=== PATIENT | female | born 1980 | race Caucasian/White ===

== ENCOUNTER 2019-08-19 19:18 | Emergency (ER) | payer OTHER ==
[~2019-08-19] VITALS: Ht 165.1 cm; Wt 86.0 kg
[2019-08-19 21:05] VITALS: BP 123/85
== END 2019-08-19 21:08 | disposition home or self-care (01) ==
LOC: ER 19:19
DX: S60.011A Contusion of right thumb without damage to nail, initial encounter (principal); W22.8XXA Striking against or struck by other objects, initial encounter; Y93.89 Activity, other specified; Y92.89 Other specified places as the place of occurrence of the external cause; Y99.9 Unspecified external cause status
CPT/HCPCS: 73130; 99283

== ENCOUNTER 2024-08-07 20:12 | Emergency (ER) | payer BC ==
[~2024-08-07] VITALS: Ht 167.6 cm; Wt 109.1 kg
[2024-08-07 20:24] VITALS: TEMP 98.2
[2024-08-07 20:32] LABS: BASOPHILS % (AUTO) 0.3 % (0-1); EOSINOPHILS # (AUTO) 0.1 X10'3 (0-0.9); EOSINOPHILS % (AUTO) 1.2 % (0-6); HEMATOCRIT 33.5 % (35.0-45.0); HEMOGLOBIN 10.6 g/dl (12.0-16.0); LYMPHOCYTES # (AUTO) 2.4 X10'3 (1.1-4.8); LYMPHOCYTES % (AUTO) 24.4 % (21-51); MEAN CORPUSCULAR HEMOGLOBIN 22.3 PG (27.0-31.0); MEAN CORPUSCULAR HGB CONC 31.6 g/dL (33.0-36.5); MEAN CORPUSCULAR VOLUME 70.6 FL (78-98); MEAN PLATELET VOLUME 6.8 FL (7.4-10.4); MONOCYTES # (AUTO) 0.6 X10'3 (0-0.9); MONOCYTES % (AUTO) 6.4 % (2-12); NEUTROPHILS # (AUTO) 6.7 X10'3 (1.8-7.7); NEUTROPHILS % (AUTO) 67.7 % (42-75); PLATELET COUNT 347 X10'3 (140-440); RED BLOOD COUNT 4.74 X10'6 (4.20-5.60); RED CELL DISTRIBUTION WIDTH 16.7 % (11.5-14.5); WHITE BLOOD COUNT 9.9 X10'3 (4.5-11.0)
[2024-08-07 20:48] LABS: ALANINE AMINOTRANSFERASE 24 U/L (12-78); ALBUMIN 3.6 G/DL (3.4-5.0); ALBUMIN/GLOBULIN RATIO 0.9 (1.1-1.5); ALKALINE PHOSPHATASE 92 IU/L (46-116); ANION GAP 7 (8-16); ASPARTATE AMINO TRANSFERASE 19 U/L (10-37); BILIRUBIN,TOTAL 0.2 MG/DL (0.1-1.0); BLOOD UREA NITROGEN 19 MG/DL (7-18); BUN/CREATININE RATIO 25.7 (10.0-20.0); CALCIUM 8.9 MG/DL (8.5-10.1); CHLORIDE 103 MMOL/L (99-107); CREATININE 0.74 MG/DL (0.40-0.90); GLUCOSE 89 MG/DL (70-104); POTASSIUM 3.8 MMOL/L (3.5-5.1); SODIUM 139 MMOL/L (135-145); TOTAL CARBON DIOXIDE 28.7 MMOL/L (24-32); TOTAL PROTEIN 7.5 G/DL (6.4-8.2); eCRCL 93 ML/MIN; eGFR 86 ML/MIN
[2024-08-07 20:54] LABS: PRO BRAIN NATRIURETIC PEPTIDE 118 PG/ML (0-125)
[2024-08-07 20:56] VITALS: PULSE 74; RESP 18; O2SAT 98
[2024-08-07] MEDS: ipratropium/albuterol 3ml nebule NEB ONE (20:56)
[2024-08-07 21:01] VITALS: PULSE 81; RESP 22; O2SAT 96
[2024-08-07 22:02] LABS: BILIRUBIN,URINE NEGATIVE (Neg); CLARITY,URINE CLEAR (Clear); COLOR,URINE STRAW (Yellow); GLUCOSE, URINE NEGATIVE (Neg); KETONES,URINE NEGATIVE (Neg); LEUKOCYTE ESTERASE ,URINE NEGATIVE (Neg); NITRITES, URINE NEGATIVE (Neg); OCCULT BLOOD,URINE NEGATIVE (Neg); PROTEIN,URINE NEGATIVE (Neg); UROBILINOGEN,URINE 0.2 E.U/dL (0.2-1.0)
[2024-08-07 22:05] LABS: UA COLLECTION TYPE CLN CATCH MIDSTREAM
[2024-08-08 00:06] VITALS: BP 114/62; PULSE 89; RESP 17; O2SAT 99
== END 2024-08-08 01:31 | disposition home or self-care (01) ==
LOC: ER 20:12
DX: M79.604 Pain in right leg (principal); R07.89 Other chest pain; Z82.49 Family history of ischemic heart disease and other diseases of the circulatory system
CPT/HCPCS: 36415; 71045; 80053; 81003; 83880; 84484; 85025; 93005; 93971; 94640; 99285

== ENCOUNTER 2024-08-11 10:19 | Emergency (ER) | payer BC ==
[~2024-08-11] VITALS: Ht 167.6 cm; Wt 91.0 kg
[2024-08-11 11:10] LABS: STREP A SCREEN NEGATIVE (Neg)
[2024-08-11 13:32] VITALS: BP 137/87; PULSE 78; RESP 16; TEMP 98.1; O2SAT 97
== END 2024-08-11 13:45 | disposition home or self-care (01) ==
LOC: ER 10:20
DX: J02.9 Acute pharyngitis, unspecified (principal); R51.9 Headache, unspecified; Z20.822 Contact with and (suspected) exposure to COVID-19
CPT/HCPCS: 36415; 87081; 87811; 87880; 99283

== ENCOUNTER 2024-08-26 10:13 | Emergency (ER) | payer BC ==
[~2024-08-26] VITALS: Ht 167.6 cm; Wt 112.5 kg
[2024-08-26 10:21] VITALS: TEMP 97
[2024-08-26] MEDS: SUMAtriptan succ. 6 MG/0.5ml vial SQ ONE (11:56)
[2024-08-26] MEDS: ketorolac trometh 15mg/ml vial 15 MG/ML ML IM ONE (12:55)
[2024-08-26] MEDS: ondansetron 4mg rapidly disintigrating tab PO ONE (12:56)
[2024-08-26 13:11] VITALS: RESP 16
== END 2024-08-26 13:19 | disposition home or self-care (01) ==
LOC: ER 10:14
DX: G43.909 Migraine, unspecified, not intractable, without status migrainosus (principal); R11.0 Nausea
CPT/HCPCS: 96372; 99284; J1885; J3030; A4615

== ENCOUNTER 2024-10-07 09:54 | Outpatient (CLI) | payer BC, MEDICAID | END 2024-10-07 23:59 | disposition home or self-care (01) | LOC: RAD 09:54 | PROVIDERS: ATTEND Registered Nurse | DX: J45.909 Unspecified asthma, uncomplicated (principal); R91.1 Solitary pulmonary nodule; J84.10 Pulmonary fibrosis, unspecified | CPT/HCPCS: 71250 ==

== ENCOUNTER 2024-10-09 14:57 | Outpatient (CLI) | payer BC, MEDICAID ==
[~2024-10-09] VITALS: Ht 167.6 cm; Wt 108.9 kg
[2024-10-09] MEDS: albuterol 2.5 MG/3 ML nebule NEB ONE (15:20)
[2024-10-09 15:26] VITALS: PULSE 72; RESP 16; O2SAT 98
[2024-10-09 15:38] VITALS: PULSE 82; RESP 16
== END 2024-10-09 23:59 | disposition home or self-care (01) ==
LOC: RT 14:57
PROVIDERS: ATTEND Registered Nurse
DX: J45.909 Unspecified asthma, uncomplicated (principal); R91.1 Solitary pulmonary nodule
CPT/HCPCS: 94060; 94729; 94760

== ENCOUNTER 2024-10-30 09:10 | Emergency (ER) | payer BC, MEDICAID ==
[~2024-10-30] VITALS: Ht 167.6 cm; Wt 109.1 kg
[2024-10-30 09:17] VITALS: TEMP 98.2
[2024-10-30] MEDS: LIDOcaine 2% Viscous 15ml cup MM PRN (09:32)
[2024-10-30] MEDS: mag hydrox/Alum hydrox/simeth 30ml oral suspension PO ONE (09:32)
[2024-10-30] MEDS: famotidine 20mg tablet PO ONE (09:32)
[2024-10-30 09:35] LABS: BASOPHILS % (AUTO) 0.4 % (0-1); EOSINOPHILS # (AUTO) 0.1 X10'3 (0-0.9); EOSINOPHILS % (AUTO) 1.5 % (0-6); HEMATOCRIT 34.5 % (35.0-45.0); HEMOGLOBIN 11.2 g/dl (12.0-16.0); LYMPHOCYTES # (AUTO) 2.1 X10'3 (1.1-4.8); LYMPHOCYTES % (AUTO) 26.9 % (21-51); MEAN CORPUSCULAR HEMOGLOBIN 23.3 PG (27.0-31.0); MEAN CORPUSCULAR HGB CONC 32.5 g/dL (33.0-36.5); MEAN CORPUSCULAR VOLUME 71.5 FL (78-98); MEAN PLATELET VOLUME 6.8 FL (7.4-10.4); MONOCYTES # (AUTO) 0.6 X10'3 (0-0.9); MONOCYTES % (AUTO) 7.2 % (2-12); PLATELET COUNT 342 X10'3 (140-440); RED BLOOD COUNT 4.82 X10'6 (4.20-5.60); RED CELL DISTRIBUTION WIDTH 16.8 % (11.5-14.5); WHITE BLOOD COUNT 7.9 X10'3 (4.5-11.0)
[2024-10-30 09:56] LABS: BILIRUBIN,URINE NEGATIVE (Neg); CLARITY,URINE CLEAR (Clear); COLOR,URINE YELLOW (Yellow); GLUCOSE, URINE NEGATIVE (Neg); KETONES,URINE NEGATIVE (Neg); LEUKOCYTE ESTERASE ,URINE NEGATIVE (Neg); NITRITES, URINE NEGATIVE (Neg); OCCULT BLOOD,URINE NEGATIVE (Neg); PROTEIN,URINE NEGATIVE (Neg); UROBILINOGEN,URINE 0.2 E.U/dL (0.2-1.0)
[2024-10-30 10:01] LABS: UA COLLECTION TYPE NON-SPECIFIED
[2024-10-30 10:04] LABS: ANION GAP 6 (8-16); BLOOD UREA NITROGEN 19 MG/DL (7-18); BUN/CREATININE RATIO 27.5 (10.0-20.0); CHLORIDE 104 MMOL/L (99-107); CREATININE 0.69 MG/DL (0.40-0.90); GLUCOSE 97 MG/DL (70-104); POTASSIUM 3.7 MMOL/L (3.5-5.1); SODIUM 138 MMOL/L (135-145); TOTAL CARBON DIOXIDE 27.8 MMOL/L (24-32)
[2024-10-30 10:05] LABS: ALBUMIN 3.6 G/DL (3.4-5.0); CALCIUM 9.1 MG/DL (8.5-10.1); LIPASE 27 U/L (16-77); MAGNESIUM 2.3 MG/DL (1.5-2.4); PRO BRAIN NATRIURETIC PEPTIDE 77 PG/ML (0-125); eCRCL 99 ML/MIN; eGFR > 90 ML/MIN
[2024-10-30 10:08] LABS: D-DIMER 0.53 MG/L FEU (0-0.50)
[2024-10-30] MEDS ORDERED: iohexol 350MG/ML 100ml bottle IV ONE (10:41)
[2024-10-30] MEDS: normal saline 1000ml 1,000 ML IV ONE (10:57)
[2024-10-30 12:44] VITALS: BP 150/85; PULSE 75; RESP 16; O2SAT 98
== END 2024-10-30 12:47 | disposition home or self-care (01) ==
LOC: ER 09:10
DX: R07.9 Chest pain, unspecified (principal); K80.20 Calculus of gallbladder without cholecystitis without obstruction; E66.9 Obesity, unspecified; J45.909 Unspecified asthma, uncomplicated; K21.9 Gastro-esophageal reflux disease without esophagitis; Z68.38 Body mass index [BMI] 38.0-38.9, adult; Z79.899 Other long term (current) drug therapy
CPT/HCPCS: 36415; 71045; 71275; 76700; 80048; 81003; 83690; 83735; 83880; 84484; 85025; 85379; 93005; 96360; 96361; 99285; J7030; Q9967

== ENCOUNTER 2024-11-22 20:20 | Emergency (ER) | payer BC, MEDICAID ==
[~2024-11-22] VITALS: Ht 167.6 cm; Wt 110.5 kg
[2024-11-22] MEDS: dexamethasone sod phosphate 10mg/ml inj PO STA (21:23)
[2024-11-22] MEDS: ketorolac trometh 30MG/ML vial 30 MG/ML VIAL IM ONE (21:25)
[2024-11-22] MEDS ORDERED: HYDR-3965 PO (21:32)
[2024-11-22] MEDS ORDERED: LIDO700A32 TOP (21:32)
[2024-11-22] MEDS ORDERED: CYCL-1 PO (21:32)
[2024-11-22 21:34] VITALS: BP 158/95; PULSE 82; RESP 17; TEMP 97.7; O2SAT 98
== END 2024-11-22 21:53 | disposition home or self-care (01) ==
LOC: ER 20:21
DX: S83.8X2A Sprain of other specified parts of left knee, initial encounter (principal); Z79.899 Other long term (current) drug therapy; X58.XXXA Exposure to other specified factors, initial encounter; Y93.89 Activity, other specified; Y92.89 Other specified places as the place of occurrence of the external cause; Y99.8 Other external cause status
CPT/HCPCS: 96372; 99283; J1100; J1885; L4360

== ENCOUNTER 2024-11-26 11:51 | Outpatient (CLI) | payer BC, MEDICAID ==
[~2024-11-26 11:51] MED LIST: CYCL-1 PO; HYDR-3965 PO; LIDO700A32 TOP
== END 2024-11-26 23:59 | disposition home or self-care (01) ==
LOC: MRI02 11:51
PROVIDERS: ATTEND Orthopaedic Surgery Orthopaedic Trauma
DX: S86.012A Strain of left Achilles tendon, initial encounter (principal); X58.XXXA Exposure to other specified factors, initial encounter; Y93.89 Activity, other specified; Y92.89 Other specified places as the place of occurrence of the external cause; Y99.8 Other external cause status
CPT/HCPCS: 73718

== ENCOUNTER 2025-01-05 20:19 | Emergency (ER) | payer BC, MEDICAID ==
[~2025-01-05] VITALS: Ht 167.6 cm; Wt 109.1 kg
[~2025-01-05 20:19] MED LIST changes: -HYDR-3965 PO
[2025-01-05] MEDS ORDERED: ONDA-245 PO (21:23)
[2025-01-05] MEDS ORDERED: PER5325T PO (21:23)
[2025-01-05] MEDS: ketorolac trometh 15mg/ml vial 15 MG/ML ML IM ONE (21:30)
[2025-01-05] MEDS: ondansetron 4mg rapidly disintigrating tab PO ONE (21:31)
[2025-01-05] MEDS: morphine 4 MG/ML inj SYRINge IM ONE (21:31)
[2025-01-05 22:12] VITALS: BP 174/99; PULSE 99; RESP 18; TEMP 98.6; O2SAT 99
== END 2025-01-05 22:14 | disposition home or self-care (01) ==
LOC: ER 20:20
DX: S93.402A Sprain of unspecified ligament of left ankle, initial encounter (principal); X58.XXXA Exposure to other specified factors, initial encounter; Y93.89 Activity, other specified; Y92.89 Other specified places as the place of occurrence of the external cause; Y99.8 Other external cause status
CPT/HCPCS: 29515; 73610; 73630; 96372; 99284; J1885; J2270; 99285; A6449

== ENCOUNTER 2025-03-13 10:18 | Outpatient (CLI) | payer MEDICAID ==
[~2025-03-13 10:18] MED LIST changes: +ONDA-245 PO
--- NOTE | 2025-03-13 16:34 | RADIOLOGY REPORT ---
Procedure: MR MRI LOWER EXTREMITY LEFT 03/13/2025 10:30 AM INDICATION: SPRAIN L ANKLE, LIGAMENT SEQUELA COMPARISON: MR MRI LOWER EXTREMITY LEFT on DOS: 11/26/24 TECHNIQUE: MRI was performed utilizing multiple appropriate imaging planes and pulse sequences. FINDINGS: Medial meniscus: Unremarkable. Lateral meniscus: Unremarkable. Anterior cruciate ligament: Unremarkable. Posterior cruciate ligament: Unremarkable. Medial collateral ligament: Unremarkable. Lateral stabilizers: The anterior talofibular ligament is torn. Sprain of the calcaneofibular ligamen t. The posterior talofibular ligament is intact. Extensor mechanism: Unremarkable. Pes anserine Tendons: Unremarkable. Medial compartment: Unremarkable. Lateral compartment: Unremarkable. Patellofemoral compartment: Unremarkable. Bones: Bone marrow edema is seen in the lateral talar dome. A subcentimeter focus of subchondral scl erosis and articular surface irregularity noted in the medial talar dome. Small tibiotalar joint effu godfrey and a subcentimeter loose body noted. There is a small plantar calcaneal spur. Joint Effusion: None. Popliteal fossa: No Penny's cyst. Other: None. IMPRESSION: 1. Subcentimeter osteochondral injury of the medial talar dome without an in-situ fracture fragment. 2. Moderate tibiotalar joint effusion a subcentimeter intra-articular loose body. 3. ATFL and calcaneofibular ligament injuries moderate surrounding soft tissue edema.
== END 2025-03-13 23:59 | disposition home or self-care (01) ==
LOC: MRI02 10:18
DX: S93.412A Sprain of calcaneofibular ligament of left ankle, initial encounter (principal); S93.402D Sprain of unspecified ligament of left ankle, subsequent encounter; X58.XXXD Exposure to other specified factors, subsequent encounter; S93.492A Sprain of other ligament of left ankle, initial encounter; X58.XXXA Exposure to other specified factors, initial encounter; Y93.89 Activity, other specified; Y92.89 Other specified places as the place of occurrence of the external cause; Y99.8 Other external cause status
CPT/HCPCS: 73721